=== PATIENT | male | born 1960 | race Caucasian/White ===

== ENCOUNTER 2017-02-14 17:43 | Inpatient (IN) | payer MEDICAID, OTHER ==
[~2017-02-14] VITALS: Ht 182.9 cm; Wt 186.4 kg
[~2017-02-14 17:43] MED LIST: ALBU6.7H2 IH; ASPI-1159 PO; ATOR20TA65 PO; BENZ1TAB7; BISA-81 PO; CARV6.2548 PO; FAMO20TA8 PO; IPRA4AER IH; LASIX; LEVO750T46 PO; LISI10TA5 PO; MAGN800O PO; PRED10TA PO; QUET25TA PO; TRAZ1POW; ZYPREXA
[2017-02-14] MEDS ORDERED: MORPHINE SULFATE 4 MG/ML CPJ (NOT FOR IM USE) IV ONE (19:15)
[2017-02-14 20:14] LABS: BASOPHILS % 0.6 % (0.0-2.0); LYMPHOCYTES % 7.4 % (20.0-50.0); MEAN CORPUSCULAR HEMOGLOBIN 20.2 pg (28.0-32.0); MEAN CORPUSCULAR VOLUME 65.1 fL (80.0-94.0); MEAN PLATELET VOLUME 6.8 fl (7.4-10.4); MONOCYTES % 6.7 % (2.0-8.0); NEUTROPHILS % 84.3 % (40.0-76.0); PLATELET 272 x1000/uL (130-400); RED BLOOD CELL COUNT 4.46 mill/uL (4.7-6.1); RED CELL DISTRIBUTION WIDTH 19.9 % (11.6-14.6)
[2017-02-14 20:20] LABS: CHLORIDE 97 mEq/L (98-107)
[2017-02-14 20:21] LABS: PROTHROMBIN TIME 10.4 sec (9.4-11.6)
[2017-02-14 20:27] LABS: CARBON DIOXIDE 33 mEq/L (21-32)
[2017-02-14 20:31] LABS: PLATELET ESTIMATE NORMAL
[2017-02-14] MEDS ORDERED: ALBUTEROL (0.5%) 2.5MG/0.5ML NEB HHN ONE (21:45)
[2017-02-14] MEDS ORDERED: METHYLPREDNISOLONE SOD SUCC 125 MG/2 ML VIAL IV ONE (21:45)
[2017-02-14] MEDS ORDERED: AMPICILLIN SOD/SULBACTAM NA 3 G in SODIUM CHLORIDE 0.9% 100 ML IV SCH (23:00)
[2017-02-15] VITALS (7 sets, daily range): BP systolic 138–165; BP diastolic 68–90
[2017-02-15 00:25] LABS: BG BASE EXCESS 3.7 mmol/L (-2.0-2.0); BG DEOXYHEMOGLOBIN 9.3 % (0.0-5.0); BG FRACTION INSPIRED OXYGEN 32; BG HCO3 ACT 29.7 mmol/L (22.0-26.0); BG METHEMOGLOBIN 0.3 % (0.0-1.5); BG OXYGEN SATURATION 90.5 % (92.0-98.5); BG OXYHEMOGLOBIN 88.4 % (94.0-97.0); BG PCO2 51.6 mmHg (35.0-45.0); BG PH 7.378 (7.350-7.450); BG PO2 62.1 mmHg (75.0-100.0); BG SAMPLE SITE RIGHT RADIAL; BG TOTAL HEMOGLOBIN 10.6 g/dL (12.0-18.0); BG VENT MODE NASAL CANNULA
[2017-02-15] MEDS ORDERED: ALBUTEROL (0.083%) 2.5MG/3ML NEB HHN PRN (02:15)
[2017-02-15] MEDS: KETOROLAC 30MG/ML VIAL IV PRN ×2 (02:45→22:18)
[2017-02-15] MEDS ORDERED: DUONEB3 ML INH (03:53)
[2017-02-15] MEDS ORDERED: BUDE6HFA INH (03:53)
[2017-02-15] MEDS ORDERED: INSU100I24 SQ (03:53)
[2017-02-15] MEDS ORDERED: CLON0.1T PO (03:53)
[2017-02-15] MEDS ORDERED: DOXY100C2 PO (03:53)
[2017-02-15] MEDS ORDERED: QUET25TA PO (03:53)
[2017-02-15] MEDS ORDERED: METF10002 PO (03:53)
[2017-02-15] MEDS ORDERED: TRAZ-129 PO (03:53)
[2017-02-15] MEDS ORDERED: PROT40 PO (03:53)
[2017-02-15] MEDS ORDERED: LORA0.5T2 PO (03:53)
[2017-02-15] MEDS ORDERED: FINA5TAB11 PO (03:53)
[2017-02-15] MEDS ORDERED: FURO-151 PO (03:53)
[2017-02-15] MEDS ORDERED: TAMS-11 PO (03:53)
[2017-02-15] MEDS ORDERED: ACET-2178 PO (03:53)
[2017-02-15] MEDS ORDERED: GLIP5TAB12 PO (03:53)
[2017-02-15] MEDS ORDERED: VANCOMYCIN 2,000 MG in DEXT 5% WATER 500 ML IV SCH ×2 (04:00→16:00)
[2017-02-15] MEDS ORDERED: PIPERACILLIN/TAZ 3.375G PREMIX 50 ML IV SCH ×2 (04:00→08:00)
[2017-02-15] MEDS: PANTOPRAZOLE 40MG DR TABLET PO SCH ×2 (06:19→08:49)
[2017-02-15] MEDS: METFORMIN HCL 500MG TABLET PO SCH ×2 (06:19→08:49)
[2017-02-15] MEDS: BLOOD SUGAR DIAGNOSTIC STRIP TEST SCH ×4 (06:20→21:00)
[2017-02-15] MEDS: GLIPIZIDE 5MG XL TABLET PO SCH (06:21)
[2017-02-15] MEDS ORDERED: INSULIN LISPRO 100 UNITS/ML SUBCUT SCH (07:15)
[2017-02-15] MEDS: INSULIN LISPRO 100 UNITS/ML SUBCUT SCH ×4 (07:50→21:00)
[2017-02-15] MEDS: IPRATROPIUM/ALBUTEROL 0.5-3(2.5)MG/3ML NEB HHN SCH ×4 (08:37→21:39)
[2017-02-15] MEDS: ENOXAPARIN 40MG/0.4ML SYR SUBCUT SCH ×2 (08:48→22:26)
[2017-02-15] MEDS: PIPERACILLIN/TAZ 3.375G PREMIX 50 ML IV SCH ×3 (08:48→16:58)
[2017-02-15] MEDS: ASPIRIN 81MG TABLET PO SCH (08:49)
[2017-02-15] MEDS: FINASTERIDE 5MG TABLET PO SCH (08:50)
[2017-02-15] MEDS: FUROSEMIDE 40MG TABLET PO SCH ×2 (08:50→22:25)
[2017-02-15] MEDS: TAMSULOSIN HCL 0.4MG SR CAPSULE PO SCH (08:50)
[2017-02-15] MEDS: MORPHINE SULFATE 4 MG/ML CPJ (NOT FOR IM USE) IV PRN (08:51)
[2017-02-15] MEDS ORDERED: ENOXAPARIN 40MG/0.4ML SYR SUBCUT SCH (09:00)
[2017-02-15] MEDS: CLONIDINE 0.1MG TABLET PO SCH ×2 (09:10→22:17)
[2017-02-15] MEDS ORDERED: VANCOMYCIN 1500MG in DEXTROSE 5% WATER 250ML IV SCH (16:00)
[2017-02-15] MEDS: INSULIN DETEMIR UD 100 UNITS/ML SYR SUBCUT SCH (22:00)
[2017-02-15] MEDS: TRAZODONE HCL 50MG TABLET PO SCH (22:17)
[2017-02-15] MEDS: QUETIAPINE FUMARATE 25MG TABLET PO SCH (22:17)
[2017-02-15] MEDS: LISINOPRIL 20MG TABLET PO SCH (22:20)
[2017-02-15] MEDS: VANCOMYCIN 1500MG in DEXTROSE 5% WATER 250ML IV SCH (22:25)
[2017-02-16] VITALS: BP 147/76
[2017-02-16] MEDS: MORPHINE SULFATE 4 MG/ML CPJ (NOT FOR IM USE) IV PRN ×4 (00:02→20:16)
[2017-02-16] MEDS: PIPERACILLIN/TAZ 3.375G PREMIX 50 ML IV SCH ×4 (00:45→18:00)
[2017-02-16] MEDS: IPRATROPIUM/ALBUTEROL 0.5-3(2.5)MG/3ML NEB HHN SCH ×7 (01:32→23:53)
[2017-02-16 04:00] VITALS: BP 134/54
[2017-02-16] MEDS: METFORMIN HCL 500MG TABLET PO SCH ×2 (06:40→18:36)
[2017-02-16] MEDS: GLIPIZIDE 5MG XL TABLET PO SCH (06:40)
[2017-02-16] MEDS: BLOOD SUGAR DIAGNOSTIC STRIP TEST SCH ×4 (06:40→21:00)
[2017-02-16] MEDS: INSULIN LISPRO 100 UNITS/ML SUBCUT SCH ×4 (06:41→22:08)
[2017-02-16 08:00] VITALS: BP 97/60
[2017-02-16 08:23] LABS: CARBON DIOXIDE 31 mEq/L (21-32); CHLORIDE 94 mEq/L (98-107)
[2017-02-16 08:27] LABS: BASOPHILS % 0.5 % (0.0-2.0); HEMATOCRIT. 27.5 % (42.0-52.0); HEMOGLOBIN. 8.4 g/dL (14.0-18.0); LYMPHOCYTES % 9.6 % (20.0-50.0); MEAN CORPUSCULAR VOLUME 65.2 fL (80.0-94.0); MEAN PLATELET VOLUME 7.9 fl (7.4-10.4); MONOCYTES % 11.3 % (2.0-8.0); NEUTROPHILS % 77.6 % (40.0-76.0); PLATELET 253 x1000/uL (130-400); RED BLOOD CELL COUNT 4.22 mill/uL (4.7-6.1); RED CELL DISTRIBUTION WIDTH 20.1 % (11.6-14.6)
[2017-02-16] MEDS: VANCOMYCIN 1500MG in DEXTROSE 5% WATER 250ML IV SCH ×2 (09:00→22:09)
[2017-02-16] MEDS: CLONIDINE 0.1MG TABLET PO SCH ×2 (09:00→21:57)
[2017-02-16] MEDS: FINASTERIDE 5MG TABLET PO SCH (09:01)
[2017-02-16] MEDS: TAMSULOSIN HCL 0.4MG SR CAPSULE PO SCH (09:01)
[2017-02-16] MEDS: FUROSEMIDE 40MG TABLET PO SCH ×2 (09:01→21:57)
[2017-02-16] MEDS: ASPIRIN 81MG TABLET PO SCH (09:02)
[2017-02-16] MEDS: ENOXAPARIN 40MG/0.4ML SYR SUBCUT SCH ×2 (09:03→21:58)
[2017-02-16 12:00] VITALS: BP 110/54
[2017-02-16 16:00] VITALS: BP 110/79
[2017-02-16] MEDS: ACETAMINOPHEN 325MG TABLET PO PRN (18:35)
[2017-02-16 20:00] VITALS: BP 111/57
[2017-02-16] MEDS: TRAZODONE HCL 50MG TABLET PO SCH (21:57)
[2017-02-16] MEDS: QUETIAPINE FUMARATE 25MG TABLET PO SCH (21:57)
[2017-02-16] MEDS: LISINOPRIL 20MG TABLET PO SCH (21:58)
[2017-02-16] MEDS: INSULIN DETEMIR UD 100 UNITS/ML SYR SUBCUT SCH (22:06)
[2017-02-17] VITALS: BP 101/69
[2017-02-17] MEDS: PIPERACILLIN/TAZ 3.375G PREMIX 50 ML IV SCH ×4 (00:46→17:24)
[2017-02-17] MEDS: ACETAMINOPHEN 325MG TABLET PO PRN (01:47)
[2017-02-17 04:00] VITALS: BP 95/52
[2017-02-17] MEDS: IPRATROPIUM/ALBUTEROL 0.5-3(2.5)MG/3ML NEB HHN SCH ×5 (04:18→20:46)
[2017-02-17] MEDS: BLOOD SUGAR DIAGNOSTIC STRIP TEST SCH ×4 (06:16→20:55)
[2017-02-17] MEDS: INSULIN LISPRO 100 UNITS/ML SUBCUT SCH ×4 (06:17→20:55)
[2017-02-17] MEDS: METFORMIN HCL 500MG TABLET PO SCH ×2 (06:24→17:24)
[2017-02-17] MEDS: PANTOPRAZOLE 40MG DR TABLET PO SCH (06:24)
[2017-02-17] MEDS: GLIPIZIDE 5MG XL TABLET PO SCH (06:24)
[2017-02-17 07:42] VITALS: BP 111/52
[2017-02-17] MEDS: FUROSEMIDE 40MG TABLET PO SCH ×2 (08:26→20:34)
[2017-02-17] MEDS: FINASTERIDE 5MG TABLET PO SCH (08:26)
[2017-02-17] MEDS: ASPIRIN 81MG TABLET PO SCH (08:26)
[2017-02-17] MEDS: ENOXAPARIN 40MG/0.4ML SYR SUBCUT SCH ×2 (08:26→20:36)
[2017-02-17] MEDS: TAMSULOSIN HCL 0.4MG SR CAPSULE PO SCH (08:27)
[2017-02-17] MEDS: MORPHINE SULFATE 4 MG/ML CPJ (NOT FOR IM USE) IV PRN ×2 (08:28→20:36)
[2017-02-17] MEDS: CLONIDINE 0.1MG TABLET PO SCH ×2 (09:00→20:34)
[2017-02-17 12:09] VITALS: BP 119/52
[2017-02-17] MEDS: VANCOMYCIN 1250MG in DEXTROSE 5% WATER 250ML IV SCH ×2 (14:29→22:33)
[2017-02-17] MEDS: KETOROLAC 30MG/ML VIAL IV PRN (14:29)
[2017-02-17 15:25] VITALS: BP 144/70
[2017-02-17 20:00] VITALS: BP 112/52
[2017-02-17] MEDS ORDERED: MAGNESIUM HYDROXIDE 400MG/5ML 30ML UDC PO PRN (20:00)
[2017-02-17] MEDS: LISINOPRIL 20MG TABLET PO SCH (20:33)
[2017-02-17] MEDS: DOCUSATE SODIUM 250MG CAPSULE PO SCH (20:34)
[2017-02-17] MEDS: TRAZODONE HCL 50MG TABLET PO SCH (20:34)
[2017-02-17] MEDS: QUETIAPINE FUMARATE 25MG TABLET PO SCH (20:36)
[2017-02-17] MEDS: INSULIN DETEMIR UD 100 UNITS/ML SYR SUBCUT SCH (22:44)
[2017-02-18] VITALS: BP 116/55
[2017-02-18] MEDS: PIPERACILLIN/TAZ 3.375G PREMIX 50 ML IV SCH ×2 (01:00→06:00)
[2017-02-18 01:20] VITALS: BP 105/51
[2017-02-18 04:00] VITALS: BP 111/53
[2017-02-18] MEDS: IPRATROPIUM/ALBUTEROL 0.5-3(2.5)MG/3ML NEB HHN SCH ×6 (05:15→23:33)
[2017-02-18 05:49] LABS: BASOPHILS % 0.6 % (0.0-2.0); EOSINOPHILS % 3.7 % (0.0-5.0); HEMOGLOBIN. 7.9 g/dL (14.0-18.0); LYMPHOCYTES % 9.6 % (20.0-50.0); MEAN CORPUSCULAR HEMOGLOBIN 20.7 pg (28.0-32.0); MEAN CORPUSCULAR VOLUME 65.4 fL (80.0-94.0); MEAN PLATELET VOLUME 7.5 fl (7.4-10.4); MONOCYTES % 12.2 % (2.0-8.0); NEUTROPHILS % 73.9 % (40.0-76.0); PLATELET 279 x1000/uL (130-400); RED BLOOD CELL COUNT 3.83 mill/uL (4.7-6.1); RED CELL DISTRIBUTION WIDTH 19.8 % (11.6-14.6)
[2017-02-18] MEDS: BLOOD SUGAR DIAGNOSTIC STRIP TEST SCH ×3 (06:39→21:05)
[2017-02-18] MEDS: PANTOPRAZOLE 40MG DR TABLET PO SCH ×2 (06:40→06:48)
[2017-02-18] MEDS: INSULIN LISPRO 100 UNITS/ML SUBCUT SCH ×3 (06:41→21:22)
[2017-02-18] MEDS: METFORMIN HCL 500MG TABLET PO SCH (07:40)
[2017-02-18] MEDS: GLIPIZIDE 5MG XL TABLET PO SCH (07:40)
[2017-02-18 08:00] VITALS: BP 103/50
[2017-02-18] MEDS: FUROSEMIDE 40MG TABLET PO SCH ×2 (09:00→21:18)
[2017-02-18] MEDS: FINASTERIDE 5MG TABLET PO SCH (09:00)
[2017-02-18] MEDS: ENOXAPARIN 40MG/0.4ML SYR SUBCUT SCH ×2 (09:00→21:20)
[2017-02-18] MEDS: DOCUSATE SODIUM 250MG CAPSULE PO SCH ×2 (09:00→17:00)
[2017-02-18] MEDS: CLONIDINE 0.1MG TABLET PO SCH ×2 (09:00→21:18)
[2017-02-18] MEDS: TAMSULOSIN HCL 0.4MG SR CAPSULE PO SCH (11:52)
[2017-02-18] MEDS: ASPIRIN 81MG TABLET PO SCH (11:52)
[2017-02-18] MEDS: VANCOMYCIN 1250MG in DEXTROSE 5% WATER 250ML IV SCH ×2 (11:53→23:15)
[2017-02-18] MEDS: MORPHINE SULFATE 4 MG/ML CPJ (NOT FOR IM USE) IV PRN (11:54)
[2017-02-18] MEDS: KETOROLAC 30MG/ML VIAL IV PRN (11:56)
[2017-02-18] MEDS: LORAZEPAM 0.5MG TABLET PO PRN (18:49)
[2017-02-18] MEDS: ACETAMINOPHEN 325MG TABLET PO PRN (18:49)
[2017-02-18 20:00] VITALS: BP 118/51
[2017-02-18] MEDS: LISINOPRIL 20MG TABLET PO SCH (21:00)
[2017-02-18] MEDS: TRAZODONE HCL 50MG TABLET PO SCH (21:19)
[2017-02-18] MEDS: QUETIAPINE FUMARATE 25MG TABLET PO SCH (21:19)
[2017-02-18] MEDS: INSULIN DETEMIR UD 100 UNITS/ML SYR SUBCUT SCH (22:29)
[2017-02-19] VITALS: BP 131/48
[2017-02-19] MEDS: PIPERACILLIN/TAZ 3.375G PREMIX 50 ML IV SCH ×3 (02:55→12:27)
[2017-02-19 04:00] VITALS: BP 123/73
[2017-02-19] MEDS: BLOOD SUGAR DIAGNOSTIC STRIP TEST SCH ×4 (06:07→21:00)
[2017-02-19] MEDS: INSULIN LISPRO 100 UNITS/ML SUBCUT SCH ×4 (06:34→21:00)
[2017-02-19 08:00] VITALS: BP 144/83
[2017-02-19] MEDS: IPRATROPIUM/ALBUTEROL 0.5-3(2.5)MG/3ML NEB HHN SCH ×2 (08:00→11:36)
[2017-02-19] MEDS: CLONIDINE 0.1MG TABLET PO SCH ×2 (09:04→23:09)
[2017-02-19] MEDS: ASPIRIN 81MG TABLET PO SCH (09:04)
[2017-02-19] MEDS: DOCUSATE SODIUM 250MG CAPSULE PO SCH ×2 (09:05→16:50)
[2017-02-19] MEDS: TAMSULOSIN HCL 0.4MG SR CAPSULE PO SCH (09:05)
[2017-02-19] MEDS: METFORMIN HCL 500MG TABLET PO SCH ×2 (09:05→16:50)
[2017-02-19] MEDS: FINASTERIDE 5MG TABLET PO SCH (09:05)
[2017-02-19] MEDS: FUROSEMIDE 40MG TABLET PO SCH ×2 (09:06→23:10)
[2017-02-19] MEDS: PANTOPRAZOLE 40MG DR TABLET PO SCH (09:06)
[2017-02-19] MEDS: ENOXAPARIN 40MG/0.4ML SYR SUBCUT SCH ×2 (09:06→23:11)
[2017-02-19] MEDS: GLIPIZIDE 5MG XL TABLET PO SCH (09:06)
[2017-02-19] MEDS: VANCOMYCIN 1250MG in DEXTROSE 5% WATER 250ML IV SCH (10:19)
[2017-02-19 12:00] VITALS: BP 108/50
[2017-02-19] MEDS ORDERED: HYDROCODONE/ACETAMINOPHEN 5/325MG TABLET PO PRN (13:45)
[2017-02-19 16:00] VITALS: BP 116/53
[2017-02-19] MEDS: HYDROCODONE/ACETAMINOPHEN 10/325MG TABLET PO PRN (16:51)
[2017-02-19] MEDS: LORAZEPAM 0.5MG TABLET PO PRN (17:49)
[2017-02-19] MEDS ORDERED: ARFORMOTEROL TARTRATE 15MCG/2ML NEB NEB SCH ×2 (18:00→21:00)
[2017-02-19] MEDS ORDERED: BUDESONIDE 0.5MG/2ML NEB HHN SCH ×2 (18:00→21:00)
[2017-02-19 19:55] VITALS: BP 150/82
[2017-02-19] MEDS: LISINOPRIL 20MG TABLET PO SCH (23:09)
[2017-02-19] MEDS: TRAZODONE HCL 50MG TABLET PO SCH (23:10)
[2017-02-19] MEDS: QUETIAPINE FUMARATE 25MG TABLET PO SCH (23:10)
[2017-02-19] MEDS: INSULIN DETEMIR UD 100 UNITS/ML SYR SUBCUT SCH (23:24)
[2017-02-20] VITALS: BP 119/66
[2017-02-20] MEDS: HYDROCODONE/ACETAMINOPHEN 10/325MG TABLET PO PRN ×2 (02:26→08:35)
[2017-02-20 04:00] VITALS: BP 114/61
[2017-02-20] MEDS: BLOOD SUGAR DIAGNOSTIC STRIP TEST SCH ×2 (07:10→11:56)
[2017-02-20] MEDS: INSULIN LISPRO 100 UNITS/ML SUBCUT SCH ×2 (07:40→11:57)
[2017-02-20 08:00] VITALS: BP 106/58
[2017-02-20] MEDS: FINASTERIDE 5MG TABLET PO SCH (08:33)
[2017-02-20] MEDS: METFORMIN HCL 500MG TABLET PO SCH (08:33)
[2017-02-20] MEDS: DOCUSATE SODIUM 250MG CAPSULE PO SCH (08:33)
[2017-02-20] MEDS: FUROSEMIDE 40MG TABLET PO SCH (08:33)
[2017-02-20] MEDS: CLONIDINE 0.1MG TABLET PO SCH (08:34)
[2017-02-20] MEDS: GLIPIZIDE 5MG XL TABLET PO SCH (08:34)
[2017-02-20] MEDS: PANTOPRAZOLE 40MG DR TABLET PO SCH (08:34)
[2017-02-20] MEDS: ASPIRIN 81MG TABLET PO SCH (08:34)
[2017-02-20] MEDS: TAMSULOSIN HCL 0.4MG SR CAPSULE PO SCH (08:34)
[2017-02-20] MEDS: ENOXAPARIN 40MG/0.4ML SYR SUBCUT SCH (08:36)
[2017-02-20 11:44] VITALS: BP 104/51
[2017-02-20 12:00] VITALS: BP 104/51
== END 2017-02-20 13:23 | DRG 133 ==
LOC: ER 18:24 → 5WST 23:26 → ENRESERV 23:40 → 8WST 02-18 01:10
PROVIDERS: ADMIT Internal Medicine Pulmonary Disease; ATTEND Internal Medicine Pulmonary Disease
PROC: 5A09357 Assistance with Respiratory Ventilation, Less than 24 Consecutive Hours, Continuous Positive Airway Pressure (ICD-10-PCS; principal; 2017-02-19)
DX: J96.91 Respiratory failure, unspecified with hypoxia (principal); L03.115 Cellulitis of right lower limb; J45.901 Unspecified asthma with (acute) exacerbation; I11.0 Hypertensive heart disease with heart failure; I50.9 Heart failure, unspecified; L03.116 Cellulitis of left lower limb; Z99.81 Dependence on supplemental oxygen; S42.301A Unspecified fracture of shaft of humerus, right arm, initial encounter for closed fracture; J96.92 Respiratory failure, unspecified with hypercapnia; Z68.43 Body mass index [BMI] 50.0-59.9, adult; S42.202A Unspecified fracture of upper end of left humerus, initial encounter for closed fracture; E66.01 Morbid (severe) obesity due to excess calories; F25.9 Schizoaffective disorder, unspecified; D64.9 Anemia, unspecified; E11.9 Type 2 diabetes mellitus without complications; F17.210 Nicotine dependence, cigarettes, uncomplicated; G47.30 Sleep apnea, unspecified; K59.00 Constipation, unspecified; N28.9 Disorder of kidney and ureter, unspecified; W05.0XXA Fall from non-moving wheelchair, initial encounter; Z79.51 Long term (current) use of inhaled steroids; Z79.82 Long term (current) use of aspirin; Z79.899 Other long term (current) drug therapy; Y93.89 Activity, other specified; Y92.89 Other specified places as the place of occurrence of the external cause; Y99.8 Other external cause status
CPT/HCPCS: 36415; 36600; 71010; 73030; 73060; 73070; 80048; 80053; 80202; 82375; 82805; 82962; 83605; 85025; 85610; 87040; 93005; 93306; 93970; 94640; 94660; 96365; 96375; 97022; 97162; 99291; A4565; C1893; J0295; J1650; J1815; J1885; J2270; J2543; J2930; J3370; J7050; J7060; J7611; J7620; J7626; L3670